=== PATIENT | male | born 1940 | race Caucasian/White ===

== ENCOUNTER → 2017-01-14 | Outpatient (REF) ==
[2014-10-30 14:10] VITALS: BP 127/79
[~2017-01-14] MED LIST: EPI EZ PEN1 MG/ML IM; HCTZ/LISINOPRIL1 TAB PO; METFORMIN500 MG PO; MULTIPLE VITAMI1 CAP PO; NIACINAMIDE500 MG PO; RITE AID ASPIRI81 M1 PO
== END ==
LOC: LAB 07:54
DX: R10.32 Left lower quadrant pain (principal); E11.9 Type 2 diabetes mellitus without complications

== ENCOUNTER → 2017-04-01 | Outpatient (REF) ==
[2014-10-30 14:10] VITALS: BP 127/79
== END ==
LOC: LAB 09:53
DX: E11.8 Type 2 diabetes mellitus with unspecified complications (principal); R10.32 Left lower quadrant pain

== ENCOUNTER → 2017-04-08 | Outpatient (REF) ==
[2014-10-30 14:10] VITALS: BP 127/79
== END ==
LOC: LAB 08:15 → EDSTATUS 10:10
DX: I10 Essential (primary) hypertension (principal); E11.9 Type 2 diabetes mellitus without complications; N40.0 Benign prostatic hyperplasia without lower urinary tract symptoms

== ENCOUNTER → 2017-08-01 | Outpatient (CLI) | payer OTHER ==
[2014-10-30 14:10] VITALS: BP 127/79
== END ==
LOC: LAB 09:49 → EDSTATUS 13:20
DX: K92.1 Melena (principal)

== ENCOUNTER 2019-01-19 14:54 | Inpatient (IN) | payer MEDICARE, OTHER ==
[~2019-01-19] VITALS: Ht 188 cm; Wt 92.3 kg
[~2019-01-19 14:54] MED LIST changes: +BENZONATATE200 MG PO; +HYDROCHLOROTHIA1 T14 PO; -MULTIPLE VITAMI1 CAP PO; +MULTIPLE VITAMI1 TA5 PO; +OMEGA 3-6-9 11200 MG PO; +TRIAMCINOLONE A15 G3 TP
[2019-01-19 15:31] VITALS: BP 129/68
[2019-01-19] MEDS ORDERED: PAIN & FEVER R500 M1 PO (16:21)
[2019-01-19] MEDS ORDERED: DULCOLAX S10 MG/SUPP RC (16:23)
[2019-01-19] MEDS ORDERED: LIDODERM1 EACH TP (16:24)
[2019-01-19] MEDS ORDERED: MIRALAX17 GM PO (16:25)
[2019-01-19] MEDS ORDERED: REGLAN5 M1 PO (16:25)
[2019-01-19] MEDS ORDERED: FEOSOL325 MG PO (16:26)
[2019-01-19] MEDS ORDERED: SENOKOT S 50 MG1 TAB PO (16:26)
[2019-01-19] MEDS ORDERED: FLOMAX0.4 MG PO (16:27)
[2019-01-19 17:28] LABS: EOS # 0.2 (0.04-0.40); EOS % 1.8 % (0.0-4.0); HEMATOCRIT 34.1 % (42.0-52.0); HEMOGLOBIN 10.6 g/dL (13.5-18.0); LYMPH# 1.4 (1.50-4.00); MEAN CELL VOLUME 91 fl (78-100); MEAN CORPUSCULAR HEMOGLOBIN 28 pg (27-31); MEAN CORPUSCULAR HGB CONC 31 g/dL (33-37); MEAN PLATELET VOLUME 11.6 fl (7.4-10.4); MONO # 0.6 (0.20-0.80); NEU # 8.5 (1.40-6.50); PLATELET COUNT 253 K/mm3 (130-400); RED BLOOD COUNT 3.74 M/mm3 (4.20-5.60); RED CELL DISTRIBUTION WIDTH 12.8 % (11.5-14.5); WHITE BLOOD COUNT 10.8 K/mm3 (4.8-10.8)
[2019-01-19 17:45] LABS: ALBUMIN 3.5 g/dL (3.4-4.8); POTASSIUM 3.8 mmol/L (3.5-5.1)
[2019-01-19 17:48] LABS: TOTAL PROTEIN 6.8 g/dL (6.2-8.1)
[2019-01-19 17:50] LABS: TOTAL BILIRUBIN 0.4 mg/dL (0.2-1.2)
[2019-01-19 18:27] LABS: URINE APPEARANCE CLEAR; URINE BILIRUBIN NEGATIVE (NEGATIVE); URINE BLOOD NEGATIVE (NEGATIVE); URINE COLOR YELLOW; URINE GLUCOSE NEGATIVE (NEGATIVE); URINE KETONE NEGATIVE (NEGATIVE); URINE LEUKOCYTE ESTERASE NEGATIVE (NEGATIVE); URINE NITRATE NEGATIVE (NEGATIVE); URINE PROTEIN(semi-quant) TRACE mg/dL (NEGATIVE); URINE UROBILINOGEN NORMAL (NORMAL)
[2019-01-19 18:28] LABS: URINE MUCUS PRESENT (NOT PRESENT)
[2019-01-19 18:45] VITALS: BP 131/69
[2019-01-20 06:26] VITALS: BP 148/72
[2019-01-20 18:23] VITALS: BP 145/77
[2019-01-21 06:17] VITALS: BP 152/75
[2019-01-21 18:50] VITALS: BP 128/5
[2019-01-22 06:18] VITALS: BP 137/78
[2019-01-22 13:13] LABS: EOS # 0.2 (0.04-0.40); EOS % 1.4 % (0.0-4.0); HEMATOCRIT 36.1 % (42.0-52.0); HEMOGLOBIN 11.5 g/dL (13.5-18.0); MEAN CELL VOLUME 91 fl (78-100); MEAN CORPUSCULAR HEMOGLOBIN 29 pg (27-31); MEAN CORPUSCULAR HGB CONC 32 g/dL (33-37); PLATELET COUNT 317 K/mm3 (130-400); RED BLOOD COUNT 3.98 M/mm3 (4.20-5.60); RED CELL DISTRIBUTION WIDTH 12.8 % (11.5-14.5)
[2019-01-22 13:16] LABS: MEAN PLATELET VOLUME 12.3 fl (7.4-10.4); NEU # 11.8 (1.40-6.50)
[2019-01-22 18:08] VITALS: BP 110/71
[2019-01-23 06:20] VITALS: BP 111/60
[2019-01-23 09:47] LABS: EOS # 0.2 (0.04-0.40); EOS % 1.7 % (0.0-4.0); HEMATOCRIT 33.6 % (42.0-52.0); HEMOGLOBIN 10.6 g/dL (13.5-18.0); LYMPH# 1.6 (1.50-4.00); MEAN CELL VOLUME 90 fl (78-100); MEAN CORPUSCULAR HEMOGLOBIN 29 pg (27-31); MEAN CORPUSCULAR HGB CONC 32 g/dL (33-37); MEAN PLATELET VOLUME 11.9 fl (7.4-10.4); MONO # 0.6 (0.20-0.80); PLATELET COUNT 273 K/mm3 (130-400); RED BLOOD COUNT 3.72 M/mm3 (4.20-5.60); RED CELL DISTRIBUTION WIDTH 12.7 % (11.5-14.5); WHITE BLOOD COUNT 11.7 K/mm3 (4.8-10.8)
[2019-01-23 09:48] LABS: NEU # 9.2 (1.40-6.50)
[2019-01-23 18:54] VITALS: BP 117/69
[2019-01-24 06:31] VITALS: BP 145/88
[2019-01-24 18:00] VITALS: BP 115/72
[2019-01-25 06:24] VITALS: BP 120/69
[2019-01-25 19:28] VITALS: BP 137/79
[2019-01-26 06:16] VITALS: BP 144/67
[2019-01-26] MEDS ORDERED: LEVAQUIN 750MG750 M1 PO (11:19)
== END 2019-01-26 11:43 | disposition home or self-care (01) | DRG 948 ==
LOC: MED/SURG 14:54
PROVIDERS: Family Medicine; ADMIT Nurse Practitioner Primary Care
DX: R53.81 Other malaise (principal); T81.41XA Infection following a procedure, superficial incisional surgical site, initial encounter; L02.211 Cutaneous abscess of abdominal wall; I10 Essential (primary) hypertension; Z88.8 Allergy status to other drugs, medicaments and biological substances
CPT/HCPCS: J1650; J2543

== ENCOUNTER → 2020-07-08 | Outpatient (REF) ==
[~2020-07-08] MED LIST changes: +DULCOLAX S10 MG/SUPP RC; +FEOSOL325 MG PO; +FLOMAX0.4 MG PO; +LEVAQUIN 750MG750 M1 PO; +LIDODERM1 EACH TP; +MIRALAX17 GM PO; +PAIN & FEVER R500 M1 PO; +REGLAN5 M1 PO; +SENOKOT S 50 MG1 TAB PO
== END ==
LOC: LAB 16:15
DX: Z20.828 Contact with and (suspected) exposure to other viral communicable diseases (principal)

== ENCOUNTER → 2020-08-04 | Outpatient (REF) | LOC: LAB 10:15 | DX: C24.0 Malignant neoplasm of extrahepatic bile duct (principal); D61.818 Other pancytopenia ==

== ENCOUNTER → 2020-12-15 | Outpatient (REF) | LOC: LAB 08:00 | DX: I10 Essential (primary) hypertension (principal); E78.5 Hyperlipidemia, unspecified; R73.03 Prediabetes; N40.1 Benign prostatic hyperplasia with lower urinary tract symptoms; D63.8 Anemia in other chronic diseases classified elsewhere; E55.9 Vitamin D deficiency, unspecified ==

== ENCOUNTER → 2021-02-02 | Outpatient (REF) | LOC: LAB 13:32 | DX: D61.818 Other pancytopenia (principal) ==

== ENCOUNTER → 2021-05-04 | Outpatient (REF) | LOC: LAB 08:37 | DX: D61.818 Other pancytopenia (principal) ==

== ENCOUNTER → 2021-07-09 | Outpatient (CLI) | payer OTHER | LOC: LAB 12:32 | DX: Z20.822 Contact with and (suspected) exposure to COVID-19 (principal) ==

== ENCOUNTER → 2021-08-29 | Outpatient (CLI) | payer OTHER | LOC: LAB 10:28 | DX: I10 Essential (primary) hypertension (principal); D63.8 Anemia in other chronic diseases classified elsewhere; E87.6 Hypokalemia; L28.2 Other prurigo; R19.7 Diarrhea, unspecified ==

== ENCOUNTER → 2021-10-28 | Outpatient (CLI) | payer OTHER ==
[~2021-10-28] VITALS: Ht 188 cm; Wt 75.0 kg
[2021-10-28 18:09] VITALS: BP 108/63
[2021-10-28 18:14] LABS: BASO # 0.05 K/mm3 (0.02-0.10); EOS # 0.04 K/mm3 (0.04-0.40); EOS % 0.4 % (0.0-4.0); HEMATOCRIT 38.1 % (42.0-52.0); HEMOGLOBIN 12.5 g/dL (13.5-18.0); LYMPH# 2.26 K/mm3 (1.50-4.00); MEAN CELL VOLUME 86 fl (78-100); MEAN CORPUSCULAR HEMOGLOBIN 28 pg (27-31); MEAN CORPUSCULAR HGB CONC 33 g/dL (33-37); MEAN PLATELET VOLUME 12.9 fl (7.4-10.4); MONO # 0.78 K/mm3 (0.20-0.80); NEU # 7.34 K/mm3 (1.40-6.50); PLATELET COUNT 200 K/mm3 (130-400); RED BLOOD COUNT 4.43 M/mm3 (4.20-5.60); RED CELL DISTRIBUTION WIDTH 13.6 % (11.5-14.5); WHITE BLOOD COUNT 10.5 K/mm3 (4.8-10.8)
[2021-10-28 18:23] LABS: ALBUMIN 3.7 g/dL (3.4-4.8); POTASSIUM 4.4 mmol/L (3.5-5.1)
[2021-10-28 18:24] LABS: CALCIUM 8.8 mg/dL (8.3-10.5)
[2021-10-28 18:27] LABS: TOTAL BILIRUBIN 0.3 mg/dL (0.2-1.2)
[2021-10-28 19:12] VITALS: BP 118/69
== END ==
LOC: AMSURD 17:41
PROVIDERS: Family Medicine
DX: R19.7 Diarrhea, unspecified (principal)
CPT/HCPCS: J7030

== ENCOUNTER → 2022-02-01 | Outpatient (CLI) | payer OTHER | LOC: VAS 09:12 | DX: M79.89 Other specified soft tissue disorders (principal) ==

== ENCOUNTER → 2022-02-19 | Outpatient (REF) | LOC: LAB 12:13 | DX: D63.8 Anemia in other chronic diseases classified elsewhere (principal); E87.6 Hypokalemia ==